=== PATIENT | female | born 1985 | race Caucasian/White ===

== ENCOUNTER 2018-03-18 05:25 | Day surgery (SDC) | payer MEDICAID, MEDICARE ==
[~2018-03-18] VITALS: Ht 160 cm; Wt 46.0 kg
[~2018-03-18 05:25] MED LIST: ACET-1008 PO; CLON1TAB4 PO; DOCU-28 PO; FERR325T39 PO; FLUO20CA39 PO; HYDR20OI TP; MAGN800O PO; [UNRECOGNIZED DRUG - CODE] PO; ringers solution, lacted 1,000 ML IV SCH
[2018-03-18] MEDS ORDERED: famotidine 20mg tablet PO ONE (05:30)
[2018-03-18] MEDS ORDERED: LIDOcaine 1% (10mg/ml) 2ml vial ONE (05:54)
[2018-03-18 06:39] LABS: BASOPHILS # (AUTO) 0.1 X10'3 (0-0.2); BASOPHILS % (AUTO) 1.4 % (0-1); EOSINOPHILS # (AUTO) 0.3 X10'3 (0-0.9); EOSINOPHILS % (AUTO) 6.2 % (0-6); LYMPHOCYTES # (AUTO) 1.6 X10'3 (1.1-4.8); LYMPHOCYTES % (AUTO) 28.9 % (21-51); MEAN CORPUSCULAR HEMOGLOBIN 31.5 PG (27.0-31.0); MEAN CORPUSCULAR HGB CONC 34.6 % (33.0-36.5); MEAN PLATELET VOLUME 9.5 FL (7.4-10.4); MONOCYTES # (AUTO) 0.5 X10'3 (0-0.9); MONOCYTES % (AUTO) 8.2 % (2-12); NEUTROPHILS # (AUTO) 3.1 X10'3 (1.8-7.7); NEUTROPHILS % (AUTO) 55.3 % (42-75); PRE OP HEMOGLOBIN 13.1 g/dL (12.0-16.0); PRE OP PLATELET COUNT 210 X10'3 (140-440); RED BLOOD COUNT 4.17 X10'6 (4.20-5.60); RED CELL DISTRIBUTION WIDTH 12.5 % (11.5-14.5)
[2018-03-18 06:49] VITALS: BP 103/60
[2018-03-18 06:51] VITALS: BP 103/60
[2018-03-18 06:56] LABS: ALBUMIN 2.8 G/DL (3.4-5.0); ALBUMIN/GLOBULIN RATIO 0.7 (1.1-1.5); ALKALINE PHOSPHATASE 77 IU/L (46-116); BLOOD UREA NITROGEN 10 MG/DL (7-18); BUN/CREATININE RATIO 17.2 (6.6-38.0); CALCIUM 8.5 MG/DL (8.5-10.1); CHLORIDE 109 MMOL/L (99-107); CREATININE 0.58 MG/DL (0.40-0.90); PRE OP ALT 53 U/L (30-65); PRE OP ANION GAP 7 (8-16); PRE OP AST 23 U/L (10-37); PRE OP BILIRUB, TOTAL 0.2 MG/DL (0.0-1.0); PRE OP GLUCOSE 86 MG/DL (70-104); PRE OP POTASSIUM 4.7 MMOL/L (3.4-5.1); PRE OP SODIUM 143 MMOL/L (135-145); TOTAL CARBON DIOXIDE 27.1 MMOL/L (24-32); eGFR > 90 ML/MIN
[2018-03-18] MEDS ORDERED: sevoflurane 250ml liquid IH ONE (07:20)
[2018-03-18] MEDS ORDERED: dexamethasone sod phosphate 4mg/ml inj. ONE (07:20)
[2018-03-18] MEDS ORDERED: midazolam 2 mg/2 ml injection ONE (07:26)
[2018-03-18] MEDS ORDERED: fentaNYL /PF 50mcg/ml 5ml ampule ONE (07:27)
[2018-03-18] MEDS ORDERED: propofol inj 20 ML IV ONE (07:31)
[2018-03-18] MEDS ORDERED: ceFAZolin 1000mg inj ONE (07:57)
[2018-03-18] MEDS ORDERED: ringers solution, lacted 1,000 ML IV SCH (08:17)
[2018-03-18] MEDS ORDERED: proCHLORperazine 10 MG/2 ml inj IV PRN (08:20)
[2018-03-18] MEDS ORDERED: morphine 4 MG/ML inj SYRINge IV PRN ×2 (08:20)
[2018-03-18] MEDS ORDERED: meperidine/PF 50mg/ml syringe IV PRN ×3 (08:20)
[2018-03-18] MEDS ORDERED: ondansetron/PF 4mg/2ml inj IV PRN (08:20)
[2018-03-18] MEDS ORDERED: ondansetron/PF 4mg/2ml inj ONE (08:32)
[2018-03-18] MEDS ORDERED: neostigmine methylsulfate 1 MG/ML 10ml vial ONE (08:35)
[2018-03-18] MEDS ORDERED: glycopyrrolate 0.2mg/ml inj ONE (08:35)
[2018-03-18 08:48] VITALS: BP 124/92
[2018-03-18 08:58] VITALS: BP 115/76
[2018-03-18 09:08] VITALS: BP 117/77
[2018-03-18 09:18] VITALS: BP 118/80
== END 2018-03-18 09:28 | disposition home or self-care (01) ==
LOC: PAS 05:25
PROVIDERS: ATTEND Dentist
DX: K05.30 Chronic periodontitis, unspecified (principal); F81.89 Other developmental disorders of scholastic skills; Z79.82 Long term (current) use of aspirin; Z79.899 Other long term (current) drug therapy
CPT/HCPCS: 36415; 41899; 80053; 85025; J0690; J2250; J2405; J2704; J2710; J3010; J3490; J7120; A7000; J1100

== ENCOUNTER 2025-08-04 09:52 | Emergency (ER) | payer MEDICARE, MEDICAID ==
[~2025-08-04] VITALS: Ht 162.6 cm; Wt 71.1 kg
[~2025-08-04 09:52] MED LIST changes: +BUSP15TA7 PO; +CHOL20002 PO; +CLON-371 PO; -CLON1TAB4 PO; +DIVA250T8 PO; +FERR324T4 PO; -FERR325T39 PO; -FLUO20CA39 PO; +FLUO20CA41 PO; -HYDR20OI TP; +HYDR50CA5; +LAMO-24 PO; +MELA3TAB39 PO; +PANT-47 PO; -[UNRECOGNIZED DRUG - CODE] PO; -ringers solution, lacted 1,000 ML IV SCH
[2025-08-04 10:00] VITALS: BP 117/68; PULSE 86; TEMP 98.8; O2SAT 97
[2025-08-04 10:32] LABS: MEAN PLATELET VOLUME 9.5 FL (7.4-10.4); RED CELL DISTRIBUTION WIDTH 44.9 % (11.5-14.5)
--- NOTE | 2025-08-04 10:48 | Physician Documentation ---
History of Present Illness General Chief Complaint: Vaginal Bleeding Stated Complaint: SEE CHIEF Time Seen by MD: 10:48 Mode of Arrival: EMS History of Present Illness Initial Comments The patient is a 40-year-old female who lives in a [facility] with developmental delay and a seizure history who was brought in for vaginal bleeding. The patient was recently in the hospital for hemoglobin of 4.1. The patient received 3 units of blood and was discharged. The patient's caregivers noted vaginal bleeding proximally two pads this morning. They states she has been without a period for last 3-4 months. The patient is unable to provide any additional history she is verbal but does not answer questions. The caregivers were also worried about some left forearm swelling and redness around the antecubital region of the left arm. Patient's symptoms are mild to moderate and persistent Medication Reconciliation Allergies: Coded Allergies: No Known Allergies (Unverified , 07/28/25) Scheduled Acetaminophen (Tylenol), 650 MG PO Q4H PRN PAIN, (Reported) Buspirone HCl (Buspirone HCl), 1 TAB PO BID, (Reported) Cephalexin*Monohydrate* (Keflex*), 2 CAP PO BID Cholecalciferol (Vitamin D3) (Vitamin D3), 1 CAP PO DAILY, (Reported) Clonazepam (Clonazepam), 1 TABLET PO BID, (Reported) Divalproex Sodium (Divalproex Sodium Er), 1 TAB PO DAILY, (Reported) Docusate Sodium (Colace), 1 CAP PO BID, (Reported) Ferrous Sulfate (Ferrous Sulfate), 1 TAB PO Q12H Fluoxetine Hcl* (Prozac*), 1 CAP PO QAM, (Reported) Lamotrigine (Lamotrigine), 2 TAB PO DAILY, (Reported) Melatonin (Melatonin), 1 TAB PO HS, (Reported) Pantoprazole Sodium (PROTONIX tablet), 40 MG PO BID Pantoprazole Sodium (PROTONIX tablet), 40 MG PO DAILY Scheduled PRN Magnesium Hydroxide (Milk Of Magnesia), 30 ML PO DAILY PRN for constipation, (Reported) Miscellaneous Medications Hydroxyzine Pamoate (Hydroxyzine Pamoate), 50, (Reported) Past Medical History Past Medical History: Anemia Last Menstrual Period: May 04, 2025 Review of Systems Unable to obtain complete ROS: other (Developmental delay) Physical Exam Physical Exam Vital Signs: Temperature: 98.8, Source: Oral, Heart Rate: 86, Respiratory Rate: 18, BP: 117/68, Pulse Oximetry: 97, Weight: 71.100 Physical Exam VITALS: Reviewed and as above. GENERAL: Alert, no apparent distress. HEENT: Normocephalic, atraumatic, PERRL, EOMI, dry mucosa, no erythema RESPIRATORY: Lungs clear, normal breath sounds, no respiratory distress. CHEST: No accessory muscle use, no retractions CV: Regular rate, rhythm, no edema, no murmur, No: JVD GI: Soft, non-tender, bowels sounds present, no rebound, guarding, or rigidity BACK: No CVA tenderness, or swelling MUSCULOSKELETAL: There is some erythema to the medial left antecubital region and a proximally 5 x 5 cm his also some induration to this region as well there was no fluctuance there is some diffuse swelling to the forearm that is nonpitting on the left. SKIN: Warm and dry, no rash NEURO: Verbal can follow simple commands moves all extremities. PSYCH: Normal mood and affect, no agitation Progress Results/Orders Results/Orders Orders - OHLFSSHANDRA MD Vl Venous (08/04/25 11:12) Completed Orders - OHSHANDRA RIOS MD Cbc/Diff (08/04/25 10:10) BMP (08/04/25 10:10) Type And Screen (08/04/25 10:10) Hcg Serum Ql (08/04/25 10:44) Ketorolac Trometh 15mg/Ml Vial (Toradol (08/04/25 11:15) Vl Venous (08/04/25 11:12) Vital Signs 08/04/25 08/04/25 08/04/25 10:00 10:32 11:57 Temp 98.8 Pulse 86 Resp 16 18 16 B/P (MAP) 117/68 Pulse Ox 97 Laboratory Tests Test 08/04/25 10:22 White Blood Count 8.9 Red Blood Count 4.54 Hemoglobin 10.9 L Hematocrit 34.2 L Mean Corpuscular Volume 75.4 L Mean Corpuscular Hemoglobin 23.9 L Mean Corpuscular Hemoglobin Concent 31.7 L Red Cell Distribution Width 44.9 H Platelet Count 160 Mean Platelet Volume 9.5 Neutrophils (%) (Auto) 68.5 Lymphocytes (%) (Auto) 17.0 L Monocytes (%) (Auto) 8.5 Eosinophils (%) (Auto) 5.3 Basophils (%) (Auto) 0.7 Neutrophils # (Auto) 6.1 Lymphocytes # (Auto) 1.5 Monocytes # (Auto) 0.8 Eosinophils # (Auto) 0.5 Basophils # (Auto) 0.1 CBC Comment Platelet Estimate Normal Red Blood Cell Morphology Perf Poikilocytosis 1+ Basophilic Stippling Anisocytosis 3+ Microcytosis 1+ Sodium Level 140 Potassium Level 4.3 Chloride Level 107 Carbon Dioxide Level 24.7 Anion Gap 8 Blood Urea Nitrogen 7 Creatinine 0.49 Estimated GFR/1.73 m2 > 90 BUN/Creatinine Ratio 14.3 Glucose Level 93 Calcium Level 8.3 L Albumin 3.0 L Human Chorionic Gonadotropin, Qual Negative Chemistry Comments Medical Decision Making Findings The patient presented with vaginal bleeding, she was recently anemic, laboratory values shows that her hemoglobin is 10 and she is hemodynamically stable. The other complaint is redness and swelling to the left forearm. Ultrasound demonstrates thrombophlebitis with the occlusion of the basilic vein. The patie nt does have erythema to the forearm I will go ahead and treat her for cellulitis. There has been advised if the swelling worsens with the patient will need to be re-evaluated and to receive another ultrasound for progression of the thrombophlebitis. The patient was otherwise nontoxic and well-appearing the patient's previous hospitalizations were were reviewed the patient will be discharged the patient's pulse oximetry was interpreted as normal and adequate Departure Disposition: 01 HOME / SELF CARE / HOMELESS Impression: Primary Impression: Vaginal bleeding Additional Impression: Thrombophlebitis Discharge Instructions: Dysfunctional Uterine Bleeding Additional Instructions: Use the antibiotics for possible cellulitis or possible urinary tract infection. You can use ibuprofen to help with the vaginal bleeding. If the bleeding worsens or your symptoms worsen return to the emergency department Referrals: NO PRIMARY CARE PROVIDER (PCP) Prescriptions Cephalexin*Monohydrate* (Keflex*) 500 Mg Capsule 2 CAP PO BID, #28 CAP Prov: SHANDRA VELÁSQUEZ MD 08/04/25 Signature Scribe Signature: no scribe Attestation: The note accurately reflects work and decisions made by me.Shandra Velásquez MD 08/07/25 12:11 SHANDRA VELÁSQUEZ MD Aug 04, 2025 10:48
[2025-08-04 10:49] LABS: CREATININE 0.49 MG/DL (0.40-0.90); TOTAL CARBON DIOXIDE 24.7 MMOL/L (24-32); eCRCL 129 ML/MIN; eGFR > 90 ML/MIN
[2025-08-04 10:57] LABS: PLATELET ESTIMATE NORMAL
[2025-08-04 11:11] LABS: HCG SERUM QL NEGATIVE
[2025-08-04 11:57] VITALS: RESP 16
[2025-08-04] MEDS: ketorolac trometh 15mg/ml vial 15 MG/ML ML IM ONE (11:57)
[2025-08-04] MEDS ORDERED: CEPH-585 PO (12:00)
--- NOTE | 2025-08-04 13:01 | VASCULAR REPORT ---
Bilateral lower extremity venous duplex Clinical History: Left upper extremity swelling Comparison: None Technique: Duplex Doppler evaluation of the deep venous systems of both lower extremities from the common femora l veins to the popliteal veins including color Doppler and spectral/pulsed waveform analysis was perf ormed. Findings/ IMPRESSION: 1. Limited examination due to patient unable to cooperate. 2. No acute occlusive deep vein thrombosis within the left upper extremity. 3. Within the left antecubital fossa , the basilic vein appears to be thrombosed (SVT).
== END 2025-08-04 12:30 | disposition home or self-care (01) ==
LOC: ER 09:53
DX: N93.9 Abnormal uterine and vaginal bleeding, unspecified (principal); I80.12 Phlebitis and thrombophlebitis of left femoral vein
CPT/HCPCS: 36415; 80048; 84703; 85025; 86885; 86900; 86901; 93971; 96372; 99285; J1885; 85008